=== PATIENT | female | born 1980 | race Caucasian/White ===

== ENCOUNTER 2017-08-09 08:44 | Emergency (ER) | payer BC ==
[~2017-08-09] VITALS: Ht 170.2 cm; Wt 63.0 kg
[2017-08-09 09:24] LABS: STREPTOCOCCUS GRP A ANTIGEN POSITIVE (NEGATIVE)
[2017-08-09] MEDS ORDERED: PENICILLIN G BENZATHINE LA 1.2 MU TBX IM STA (09:31)
[2017-08-09 09:38] LABS: INFLUENZAE A&B ANTIGEN (RAPID) NEGATIVE (NEGATIVE)
== END 2017-08-09 09:50 | disposition home or self-care (01) ==
LOC: ER 08:44
DX: R05 Cough (principal); J02.0 Streptococcal pharyngitis
CPT/HCPCS: 83518; 87400; 99282; J0561